=== PATIENT | female | born 1950 | race Caucasian/White ===

== ENCOUNTER 2018-07-06 18:19 | Emergency (ER) | payer OTHER ==
[~2018-07-06] VITALS: Ht 175.3 cm; Wt 84.8 kg
[2018-07-06] MEDS ORDERED: METFORMIN HCL500 MG PO (18:26)
[2018-07-06] MEDS ORDERED: ZOCOR20 MG PO (18:27)
[2018-07-06] MEDS ORDERED: VITAMINC500 PO (18:27)
[2018-07-06] MEDS ORDERED: ASPIR 8181 MG PO (18:27)
[2018-07-06] MEDS ORDERED: VITAMIN D1000 UNI1 PO (18:27)
[2018-07-06] MEDS ORDERED: IRON325 PO (18:27)
[2018-07-06 20:01] VITALS: BP 131/74
== END 2018-07-06 20:01 | disposition home or self-care (01) ==
LOC: ER 18:19
DX: S86.811A Strain of other muscle(s) and tendon(s) at lower leg level, right leg, initial encounter (principal); F17.200 Nicotine dependence, unspecified, uncomplicated; E78.00 Pure hypercholesterolemia, unspecified; Z96.651 Presence of right artificial knee joint; Z88.5 Allergy status to narcotic agent; W10.9XXA Fall (on) (from) unspecified stairs and steps, initial encounter; Y92.009 Unspecified place in unspecified non-institutional (private) residence as the place of occurrence of the external cause; Y93.89 Activity, other specified; Y99.8 Other external cause status